=== PATIENT | male | born 1985 | race Caucasian/White ===

== ENCOUNTER 2023-12-07 09:49 | Outpatient (CLI) | payer OTHER, SELFPAY ==
--- NOTE | 2023-12-07 11:00 | XR_ITS ---
WS: [email or web address] XR ankle RT min 3V* [id number] REASON FOR EXAM: OSTEOARTHRITIS FINDINGS: No fracture or focal bone lesion. Joint spaces of the right ankle are intact and well preserved. No soft tissue abnormality. IMPRESSION: No significant abnormality.
--- NOTE | 2023-12-07 11:00 | XR_ITS ---
WS: [email or web address] XR hand RT 2V [id number] REASON FOR EXAM: OSTEOARTHRITIS FINDINGS: No fracture or focal bone lesion. No periosteal reaction or bone erosion. Mild narrowing of the joint space with mild subchondral sclerosis and the 3 joints of the thumb. Mild subluxation at the metacarpal phalangeal joint. No soft tissue abnormality. IMPRESSION: Mild osteoarthritis of the right hand.
--- NOTE | 2023-12-07 11:00 | XR_ITS ---
WS: [email or web address] XR lumbar spine min 4V [id number] REASON FOR EXAM: OSTEOARTHRITIS W/RADICULOPATHY FINDINGS: 5 lumbar vertebrae. Mild rotatory dextroscoliosis. Normal lordosis. No vertebral body abnormality. Mild narrowing of the L4-L5 and L5-S1 disc spaces. Minimal anterolisthesis of L5 in relation to L4. IMPRESSION: Mild changes of degenerative spondylosis.
--- NOTE | 2023-12-07 11:00 | XR_ITS ---
WS: [email or web address] [place] [id number] REASON FOR EXAM: BILATERAL KNEE PAIN FINDINGS: No focal bone lesion. There is symmetric mild narrowing of the medial and lateral knee joint spaces in both knee joints. Th ere is mild subchondral sclerosis in the medial knee joint compartment of both knees. IMPRESSION: Symmetric bilateral mild osteoarthritis.
--- NOTE | 2023-12-07 11:00 | XR_ITS ---
WS: [email or web address] XR cervical spine 4-5V [id number] REASON FOR EXAM: OSTEOARTHRITIS FINDINGS: Mild reversal of the normal lordosis of the cervical spine. No significant vertebral body abnormality. Moderate narrowing of the C5-C6 and C6-C7 disc spaces with moderate anterior osteophyte ptosis and un cinate osteophytosis. No significant listhesis. IMPRESSION: Significant degenerative spondylosis of the cervical spine.
--- NOTE | 2023-12-07 11:00 | XR_ITS ---
WS: [email or web address] [id number] REASON FOR EXAM: R JAW FX FINDINGS: Examination is suboptimal. The lateral open and closed mouth views have extensive overlapping aerated sinus and soft tissue. Also, there is no AP view or Zuleyma view which is needed for complete evaluat ion. On the views it can be interpreted no mandibular fracture is identified. IMPRESSION: Suboptimal examination with no mandibular fracture identified.
== END 2023-12-07 09:50 | disposition home or self-care (01) ==
PROVIDERS: Visit Provider Family Medicine
DX: S02.609A Fracture of mandible, unspecified, initial encounter for closed fracture (principal); X58.XXXA Exposure to other specified factors, initial encounter; M47.26 Other spondylosis with radiculopathy, lumbar region; M17.0 Bilateral primary osteoarthritis of knee; M19.041 Primary osteoarthritis, right hand; M47.812 Spondylosis without myelopathy or radiculopathy, cervical region; M19.90 Unspecified osteoarthritis, unspecified site
CPT/HCPCS: 70330; 72050; 72110; 73120; 73565; 73610